=== PATIENT | female | born 1970 | race African-American/Black ===

== ENCOUNTER 2018-12-25 12:17 | Emergency (ER) | payer MEDICAID ==
[~2018-12-25] VITALS: Ht 180.3 cm; Wt 63.5 kg
[2018-12-25 12:25] VITALS: Ht 180.3 cm; Wt 63.5 kg
[2018-12-25 13:32] VITALS: BP 125/92
== END 2018-12-25 13:32 | disposition home or self-care (01) ==
LOC: ED 12:17
DX: S82.832A Other fracture of upper and lower end of left fibula, initial encounter for closed fracture (principal); W10.9XXA Fall (on) (from) unspecified stairs and steps, initial encounter; Y93.89 Activity, other specified; Y92.89 Other specified places as the place of occurrence of the external cause; Y99.8 Other external cause status
CPT/HCPCS: Q0092